=== PATIENT | male | born 1965 | race Two or more races ===

== ENCOUNTER 2017-03-01 13:02 | Emergency (ER) | payer BC ==
[~2017-03-01] VITALS: Ht 170.2 cm; Wt 95.3 kg
[~2017-03-01 13:02] MED LIST: NKM
[2017-03-01] MEDS ORDERED: oxyCODONE HCL/Acetaminophen 5/325mg ORAL ONE (13:15)
[2017-03-01 13:25] VITALS: BP 148/86
--- NOTE | 2017-03-01 13:39 | Emergency Room Report ---
History of Present Illness General Chief Complaint: Upper Extremity Injury Source: Patient Present Illness HPI 51 Yo male presents to the ED c/o 9 out of 10 in severity pain, bleeding and open wound to the left middle finger status post having finger smashed by a 50 pound weight at the gym. She states he is up-to-date with vaccinations she reports numbness to the distal aspect of the left middle finger and pain upon movement or bending the finger. Patient states that it appeared to that he split his finger open. Patient denies injury to other extremities. Denies loss of gross motor movements of the extremities, incontinence of bowel or bladder. Denies CP, Palpitations, LOC, AMS, dizziness, Changes in Vision, or a sudden severe headache. Patient's family discusses that if surgical revision as required they have he preferred plastic surgeon who is willing to see patient after leaving emergency department. Allergies: Coded Allergies: No Known Allergies (Unverified , 03/01/17) Patient History Past Medical History: see triage record Past Surgical History: none Pertinent Family History: none Immunizations: UTD Reviewed Nursing Documentation: PMH: Agreed, PSxH: Agreed Nursing Documentation-PMH Past Medical History: No Stated History Review of Systems All Other Systems: negative except mentioned in HPI Physical Exam Vital Signs Date Time Temp Pulse Resp B/P (MAP) Pulse Ox O2 Delivery O2 Flow Rate FiO2 03/01/17 12:53 97.9 84 16 148/86 96 Room Air Sp02 EP Interpretation: reviewed, normal General Appearance: alert, GCS 15, non-toxic, moderate distress Head: normocephalic, atraumatic ENT: hearing grossly normal, normal voice Neck: full range of motion Respiratory: lungs clear, normal breath sounds, speaking full sentences Cardiovascular #1: regular rate, rhythm Cardiovascular #2: 2+ radial (R), 2+ radial (L) Musculoskeletal: back normal, gait/station normal, normal range of motion, tender - to the Distal left middle finger. - distal portion is significantly macerated , there is no full amputation however about 80 % of the distal finger structures and nail are involved/injured. Neurologic: alert, oriented x3, responsive, motor strength/tone normal, sensory intact, speech normal, grossly normal Psychiatric: judgement/insight normal Skin: normal color, no rash, warm/dry, well hydrated Lymphatic: no adenopathy Medical Decision Making PA Attestation Dr. lovett is my supervising Physician whom patient management has been discussed with. Diagnostic Impression: Primary Impression: Comminuted fracture Additional Impressions: Fracture of phalanx of middle finger Qualified Codes: S62.623B - Displaced fracture of middle phalanx of left middle finger, initial encounter for open fracture Laceration of nail bed of finger Qualified Codes: S61.319A - Laceration without foreign body of unspecified finger with damage to nail, initial encounter Phalanx, hand fracture, open Qualified Codes: S62.609B - Fracture of unspecified phalanx of unspecified finger, initial encounter for open fracture ER Course 51 Yo male presents to the ED c/o 9 out of 10 in severity pain, bleeding and open wound to the left middle finger status post having finger smashed by a 50 pound weight at the gym. She states he is up-to-date with vaccinations she reports numbness to the distal aspect of the left middle finger and pain upon movement or bending the finger. Patient states that it appeared to that he split his finger open. Patient denies injury to other extremities. Denies loss of gross motor movements of the extremities, incontinence of bowel or bladder. Denies CP, Palpitations, LOC, AMS, dizziness, Changes in Vision, or a sudden severe headache. Patient's family discusses that if surgical revision as required they have he preferred plastic surgeon who is willing to see patient after leaving emergency department. Ddx considered but are not limited to Fracture, dislocation, contusion, Sprain/ Strain/Spasm, Nail bed injury/nail-bed laceration, or amputation just to name a few Vital signs: are WNL, pt. is afebrile H&PE are most consistent with musculoskeletal injury will perform imaging to r/ o fractures/dislocations. ORDERS: - X-ray Left hand 3 views - negative for fx, Dislocation, or significant soft tissue injury, per preliminary read in ED, and signed by WHITNEY Conley , my supervising physician has reviewed, and agrees with my interpretation. ED INTERVENTIONS: - Percocet PO - wound dressing - finger Splint applied to the LMF by technical planner. Pt. remains neurovascularly intact. Due to the extent of this injury Pt. is going to require surgical hand specialist. Pt. family prefers to use their own referred plastic surgeon, Dr. Jo-Ann Malhotra Dr. Malhotra was contacted by number provided by pt's family. He agrees to accept this patient and continued his care. Discussed this case over the phone with Dr. Malhotra. Will loosely dress wound, splint , and send to his office for emergent repair of complex comminuted open fractures of the left distal phalanx with significant soft tissue and nail bed injury. DISCHARGE: At this time pt. is stable for d/c to Hand Specialist Dr. Malhotra's Office . Will provide printed patient care instructions, and any necessary prescriptions. Care plan and follow up instructions have been discussed with the patient prior to discharge. Last Vital Signs Date Time Temp Pulse Resp B/P (MAP) Pulse Ox O2 Delivery O2 Flow Rate FiO2 03/01/17 13:25 97.9 16 148/86 96 Room Air 03/01/17 12:53 84 Disposition: HOME, SELF-CARE Condition: Stable Scripts Oxycodone/Acetaminophen 5-325* (PERCOCET 5-325 MG TABLET*) 1 Each Tablet 1 TAB ORAL Q6H Y for For Pain, #10 TAB 0 Refills Prov: Griselda Conley 03/01/17 Bacitracin/Polymyxin B Sulfate (BACITRACIN-POLYMYXIN OINTMENT) 28.35 Gm Oint...g. 1 APPLIC TP BID, #28.3 GM Prov: Griselda Conley 03/01/17 Cephalexin* (KEFLEX*) 500 Mg Capsule 500 MG ORAL EVERY 12 HOURS for 7 Days, #14 CAP 0 Refills Prov: Griselda Conley 03/01/17 Patient Instructions: Finger Fracture, [id number], Nail Bed Laceration Additional Instructions: Take medications as directed. Follow up Immediately Upon ED Discharge with Dr. Jo-Ann Rosales [phone]. Return sooner to ED if new symptoms occur, or current symptoms become worse. - Please note that this Emergency Department Report was dictated using [employer] making machine operator technology software, occasionally this can lead to erroneous entry secondary to interpretation by the dictation equipment. Grisleda Conley Mar 01, 2017 13:39
[2017-03-01] MEDS ORDERED: CEPHALEXIN500 MG ORAL (13:42)
[2017-03-01] MEDS ORDERED: PERCOCET 5-3251 EACH ORAL (13:42)
[2017-03-01] MEDS ORDERED: BACITRACIN-P28.35 GM TP (13:42)
[2017-03-01 13:53] VITALS: BP 148/86
--- NOTE | 2017-03-01 21:48 | Diagnostic Imaging Report ---
Indication: pain Findings: 3 views of the left hand were obtained. Maceration of the third distal phalange noted comminuted fracture and macerated soft tissue. IMPRESSION: Severe maceration of the third distal phalange
== END 2017-03-01 21:00 | disposition home or self-care (01) ==
LOC: EDBD 13:02 → EMR 13:29
DX: S62.633A Displaced fracture of distal phalanx of left middle finger, initial encounter for closed fracture (principal); S61.313A Laceration without foreign body of left middle finger with damage to nail, initial encounter; W22.8XXA Striking against or struck by other objects, initial encounter; Y92.39 Other specified sports and athletic area as the place of occurrence of the external cause
CPT/HCPCS: 99283